=== PATIENT | female | born 1955 | race Hispanic/Latino ===

== ENCOUNTER → 2023-12-25 | Outpatient (REF) | payer MEDICARE | LOC: RAD 10:55 | PROVIDERS: ATTEND Internal Medicine | DX: M79.604 Pain in right leg (principal); R60.9 Edema, unspecified; M79.89 Other specified soft tissue disorders | CPT/HCPCS: 93971 ==

== ENCOUNTER → 2024-08-19 | Outpatient (REF) | payer MEDICARE ==
[~2024-08-19] MED LIST: HYDROMORPHONE 1MG/1ML INJ ONE
== END ==
LOC: US 09:44
PROVIDERS: ATTEND Nurse Practitioner
DX: K76.0 Fatty (change of) liver, not elsewhere classified (principal); Z86.010 Personal history of colon polyps
CPT/HCPCS: 76705; J1170